=== PATIENT | female | born 1960 | race Caucasian/White ===

== ENCOUNTER → 2016-11-30 | Outpatient (CLI) | payer MEDICAID, OTHER ==
--- NOTE | 2016-11-30 17:07 | RADIOLOGY REPORT (SQ) ---
EXAM DESCRIPTION: CHEST PA/LATERAL COMPLETED DATE/TIME: 11/30/2016 4:56 pm REASON FOR STUDY: CHEST PAIN, UNSPECIFIED COMPARISON: CT angio chest and chest films 07/20/2016 EXAM PARAMETERS: NUMBER OF VIEWS: two views TECHNIQUE: Digital Frontal and Lateral radiographic views of the chest acquired. RADIATION DOSE: NA LIMITATIONS: none FINDINGS: LUNGS AND PLEURA: No opacities, masses or pneumothorax. No pleural effusion. MEDIASTINUM AND HILAR STRUCTURES: No masses or contour abnormalities. HEART AND VASCULAR STRUCTURES: Heart normal size. No evidence for failure. BONES: No acute findings. HARDWARE: Dorsal column stimulator electrodes over the lower thoracic spine. Post cervical fusion wi th hardware. OTHER: No other significant finding. IMPRESSION: NO SIGNIFICANT RADIOGRAPHIC FINDING IN THE CHEST. TECHNICAL DOCUMENTATION: JOB ID: [id number] [employer]- All Rights Reserved
[2016-11-30 17:08] LABS: ABSOLUTE BASOPHILS # (AUTO) 0.1 10^3/uL (0.0-0.2); ABSOLUTE EOSINOPHILS # (AUTO) 0.3 10^3/uL (0.0-0.6); ABSOLUTE LYMPHOCYTES (AUTO) 2.9 10^3/uL (0.5-4.7); ABSOLUTE MONOCYTES (AUTO) 0.4 10^3/uL (0.1-1.4); ABSOLUTE NEUT (AUTO) 2.9 10^3/uL (1.7-8.2); BASOPHILS % (AUTO) 0.9 % (0-2); EOSINOPHILS % (AUTO) 3.9 % (0-6); HEMATOCRIT 42.5 % (36.0-47.0); HEMOGLOBIN 13.9 g/dL (12.0-15.5); HGB HCT DIFFERENCE -0.8; LYMPHOCYTES % (AUTO) 44.4 % (13-45); MEAN CORPUSCULAR HEMOGLOBIN 30.7 pg (27.0-33.4); MEAN CORPUSCULAR HGB CONC 32.8 g/dL (32.0-36.0); MEAN CORPUSCULAR VOLUME 94 fl (80-97); MONOCYTES % (AUTO) 6.8 % (3-13); RED BLOOD COUNT 4.54 10^6/uL (3.72-5.28); RED CELL DISTRIBUTION WIDTH 13.9 % (11.5-14.0); WHITE BLOOD COUNT 6.6 10^3/uL (4.0-10.5)
[2016-11-30 17:29] LABS: ALANINE AMINOTRANSFERASE 32 U/L (9-52); ALBUMIN 4.3 g/dL (3.5-5.0); ALKALINE PHOSPHATASE 134 U/L (38-126); ANION GAP 10 (5-19); ASPARTATE AMINO TRANSFERASE 29 U/L (14-36); BILIRUBIN,DIRECT 0.3 mg/dL (0.0-0.4); BILIRUBIN,TOTAL 0.5 mg/dL (0.2-1.3); BLOOD UREA NITROGEN 9 mg/dL (7-20); CALCIUM 9.9 mg/dL (8.4-10.2); CARBON DIOXIDE 29 mmol/L (22-30); CHLORIDE 102 mmol/L (98-107); CREATININE RESULT 0.65 mg/dL (0.52-1.25); GLUCOSE 88 mg/dL (75-110); POTASSIUM 4.3 mmol/L (3.6-5.0); SODIUM 140.5 mmol/L (137-145); TOTAL PROTEIN 7.4 g/dL (6.3-8.2)
--- NOTE | 2016-11-30 20:30 | EKG REPORT ---
SEVERITY:- BORDERLINE ECG - SINUS RHYTHM BORDERLINE INFERIOR Q WAVES : Confirmed by: Tom Ellsworth MD 30-Nov-2016 20:29:57
== END ==
LOC: OD 16:09
PROVIDERS: ATTEND Obstetrics & Gynecology
DX: R07.9 Chest pain, unspecified (principal); R53.81 Other malaise
CPT/HCPCS: 36415; 71020; 80053; 83735; 83880; 85025; 93005; 93010

== ENCOUNTER → 2017-02-08 | Outpatient (CLI) | payer SELFPAY ==
--- NOTE | 2017-02-08 11:23 | RADIOLOGY REPORT (SQ) ---
EXAM DESCRIPTION: CT THORACIC SPINE WITHOUT COMPLETED DATE/TIME: 02/08/2017 10:41 am REASON FOR STUDY: THORACIC STENOSIS COMPARISON: CT angio chest 07/20/2016 TECHNIQUE: Axial images acquired through the thoracic spine without intravenous contrast. Images re viewed with lung, soft tissue and bone windows. Reconstructed coronal and sagittal MPR images review ed. Images stored on PACS. All CT scanners at this facility use dose modulation, iterative reconstruction, and/or weight based d osing when appropriate to reduce radiation dose to as low as reasonably achievable (ALARA). [facility]: Dose Right [facility]: CareDose [facility]: Dose Right [facility]: Teradose 4D [facility]: Smart [email or web address] RADIATION DOSE: Up-to-date CT equipment and radiation dose reduction techniques were employed. CTDIv ol: 13.3 mGy. DLP: 457 mGy-cm. mGy. LIMITATIONS: None. FINDINGS: VISUALIZED LUNGS: No acute opacities. No pneumothorax. SOFT TISSUES: No soft tissue swelling. No masses. VERTEBRAL BODIES: No fractures. No dislocation. No acute findings. DISCS: Multilevel diffuse disc space loss of height throughout the thoracic spine. No bulky anterior or posterior osteophytes. ALIGNMENT: Normal. TRANSVERSE PROCESSES, POSTERIOR ELEMENTS: No fractures. No dislocation. No acute findings. HARDWARE: Dorsal column stimulator with electrodes from T8 through T12. Lower cervical fusion hardwa re with metallic disc spacers at C5-6 and C6-7 VISUALIZED RIBS: No fractures. OTHER: No other significant finding. IMPRESSION: No acute findings. No thoracic compression deformity. Diffuse disc space loss of height throughout the thoracic spine without significant central or forami nal encroachment. TECHNICAL DOCUMENTATION: JOB ID: [id number] Quality ID # [id number]: Final reports with documentation of one or more dose reduction techniques (e.g., Au tomated exposure control, adjustment of the mA and/or kV according to patient size, use of iterative reconstruction technique) 2010 [employer]- All Rights Reserved
--- NOTE | 2017-02-08 11:30 | RADIOLOGY REPORT (SQ) ---
EXAM DESCRIPTION: CT LUMBAR SPINE WITHOUT COMPLETED DATE/TIME: 02/08/2017 10:41 am REASON FOR STUDY: LUMBAR RADICULOPATHY COMPARISON: CT abdomen pelvis 05/17/2012 TECHNIQUE: Axial images acquired through the lumbar spine without intravenous contrast. Images revi ewed with lung, soft tissue and bone windows. Reconstructed coronal and sagittal MPR images reviewed . All images stored on PACS. All CT scanners at this facility use dose modulation, iterative reconstruction, and/or weight based d osing when appropriate to reduce radiation dose to as low as reasonably achievable (ALARA). [facility]: Dose Right [facility]: CareDose [facility]: Dose Right [facility]: Teradose 4D [facility]: Smart [employer] RADIATION DOSE: Up-to-date CT equipment and radiation dose reduction techniques were employed. CTDIv ol: 13.3 mGy. DLP: 421 mGy-cm. mGy. LIMITATIONS: None. FINDINGS: SEGMENTATION: Normal. No transitional anatomy. ALIGNMENT: Mild degenerative convex rightward lumbar curvature VERTEBRAL BODIES: No fractures. No dislocation. No acute findings. DISCS: At T11-12, there is ligamentum flavum ossification. No central or foraminal stenosis. At T12-L1, there is mild bilateral facet arthropathy. No central or foraminal stenosis. Neurostimul ator electrodes enter the spinal canal Candis right interlaminar approach. At L1-2, mild bilateral facet hypertrophy is present. No central or foraminal encroachment. At L2-3, disc space loss of height is present with mild diffuse posterior disc bulging. This finding along with mild bilateral facet and ligament hypertrophy causes borderline central canal narrowing. No right foraminal narrowing. Mild left foraminal narrowing without definite exiting left L2 nerve root impingement. At L3-4, disc space loss of height is present with broad diffuse posterior disc bulging and bony spur ring along with moderate facet and ligament hypertrophy causes borderline central canal narrowing. N o significant right foraminal narrowing. Moderate left foraminal stenosis without definite exiting l eft L3 nerve root impingement. At L4-5, broad diffuse posterior disc bulging and bony spurring right greater than left along with mi ld bilateral facet hypertrophy causes mild central canal narrowing. There is asymmetric flattening o f the thecal sac on the right at the level of the takeoff of the right L5 nerve root in the lateral r ecess on axial image 67. Moderate to high-grade right and mild left foraminal narrowing is present. At L5-S1, minimal posterior disc bulging is present, mild bilateral facet hypertrophy with right liga mentum flavum ossification. No central stenosis. Mild to moderate right foraminal narrowing, no sig nificant left foraminal narrowing. PEDICLES, TRANSVERSE PROCESSES: No fractures. No dislocation. No acute findings. FACETS, POSTERIOR ELEMENTS: No fractures. No dislocation. HARDWARE: None in the spine. VISUALIZED RIBS: No fractures. SOFT TISSUES: No significant or acute finding in adjacent soft tissues. OTHER: No other significant finding. IMPRESSION: Degenerative disc changes most pronounced at L4-5 TECHNICAL DOCUMENTATION: JOB ID: [id number] Quality ID # [id number]: Final reports with documentation of one or more dose reduction techniques (e.g., Au tomated exposure control, adjustment of the mA and/or kV according to patient size, use of iterative reconstruction technique) 2010 [employer] All Rights Reserved
--- NOTE | 2017-02-08 11:35 | RADIOLOGY REPORT (SQ) ---
EXAM DESCRIPTION: CERV SP 3 VIEW OR LESS COMPLETED DATE/TIME: 02/08/2017 11:12 am REASON FOR STUDY: CERVICAL RADICULOPATHY (FLEX/EXT ONLY) COMPARISON: None. NUMBER OF VIEWS: Three views. TECHNIQUE: AP and lateral radiographic images acquired of the cervical spine. Lateral flexion and e xtension views were obtained. LIMITATIONS: None. FINDINGS: MINERALIZATION: Normal. ALIGNMENT: Anatomic. VERTEBRAE: Vertebral bodies of normal height. DISCS: No significant disc space narrowing. No large osteophytes. HARDWARE: There is an anterior plate that extends from C4 to C7 with screws into the vertebral bodies and with disc space implants. SOFT TISSUES: No masses or calcifications. Lung apices clear. OTHER: There is normal movement between flexion and extension. There is no instability. IMPRESSION: Surgical changes with no evidence of instability. TECHNICAL DOCUMENTATION: JOB ID: [id number] [employer]- All Rights Reserved
== END ==
LOC: RAD 10:24
PROVIDERS: ATTEND Specialist
DX: M54.16 Radiculopathy, lumbar region (principal); M54.12 Radiculopathy, cervical region; M48.04 Spinal stenosis, thoracic region
CPT/HCPCS: 72040; 72128; 72131

== ENCOUNTER 2018-01-23 05:04 | Emergency (ER) | payer SELFPAY ==
[2018-01-23] MEDS ORDERED: HYDROMORPHONE HCL INJ/PF 2 MG/ML AMPULE IM ONE ×2 (07:48→09:53)
[2018-01-23] MEDS ORDERED: LIDOCAINE 5% (700 MG) TRANSDERMAL ADH..PATCH TP ONE (07:49)
--- NOTE | 2018-01-23 07:58 | ER Document Report ---
HPI - HPI Patient complains to provider of: Right-sided neck pain Onset: Last week Onset/Duration: Persistent Quality of pain: Sharp Pain Level: 4 Context: Patient states she has a history of previous cervical fusion. Patient states that she was sweeping and cleaning the garage last week and afterwards developed neck pain. Patient denies any traumatic injury. Patient denies any fever or recent illness. Patient states pain radiates to the right upper extremity and that she has a decreased sensation to the right shoulder area. Associated Symptoms: Other - Right-sided neck pain. denies: Fever, Headache, Nausea, Vomiting Exacerbated by: Denies, Movement Relieved by: Denies Similar symptoms previously: No Recently seen / treated by doctor: No - ROS ROS below otherwise negative: Yes Systems Reviewed and Negative: Yes All other systems reviewed and negative - CONSTITUTIONAL Constitutional: DENIES: Fever - NEURO Neurology: DENIES: Weakness - CARDIOVASCULAR Cardiovascular: DENIES: Chest pain - GASTROINTESTINAL Gastrointestinal: DENIES: Nausea - REPRODUCTIVE Reproductive: DENIES: : - MUSCULOSKELETAL Musculoskeletal: REPORTS: Neck Pain - DERM Skin Color: Normal Skin Problems: None Past Medical History - General Information source: Patient - Social History Smoking Status: Current Every Day Smoker Smoking Education Provided: Yes Frequency of alcohol use: None Drug Abuse: None Occupation: None Lives with: Family Family History: Reviewed & Not Pertinent. denies: CAD, COPD Patient has suicidal ideation: No Patient has homicidal ideation: No - Past Medical History Cardiac Medical History: Denies: Hx Coronary Artery Disease, Hx Heart Attack, Hx Hypertension Pulmonary Medical History: Denies: Hx Asthma, Hx Bronchitis, Hx COPD, Hx Pneumonia Neurological Medical History: Denies: Hx Cerebrovascular Accident, Hx Seizures Renal/ Medical History: Denies: Hx Peritoneal Dialysis Musculoskeletal Medical History: Denies Hx Arthritis, Reports Other - Chronic back pain Psychiatric Medical History: Reports: Hx Anxiety, Hx Depression Past Surgical History: Reports: Hx Section, Hx Hysterectomy, Hx Orthopedic Surgery - Cervical fusion, spine stimulator. Denies: Hx Pacemaker - Immunizations Hx Diphtheria, Pertussis, Tetanus Vaccination: Yes Vertical Provider Document - CONSTITUTIONAL Agree With Documented VS: Yes Exam Limitations: No Limitations General Appearance: WD/WN, No Apparent Distress - INFECTION CONTROL TRAVEL OUTSIDE OF THE [place] IN LAST 30 DAYS: No - HEENT HEENT: Atraumatic, Normocephalic - NECK Neck: Supple, Other - Scar to left anterior neck Notes: Right sternocleidomastoid muscle tenderness with spasm - RESPIRATORY Respiratory: Breath Sounds Normal, No Respiratory Distress - CARDIOVASCULAR Cardiovascular: Regular Rate, Regular Rhythm Pulses: Normal: Radial - BACK Back: Abnormal Inspection - Right trapezius muscle tenderness and spasm - MUSCULOSKELETAL/EXTREMETIES Musculoskeletal/Extremeties: MAEW, FROM - NEURO Level of Consciousness: Awake, Alert, Appropriate Motor/Sensory: No Motor Deficit. negative: No Sensory Deficit - Decreased sensation to touch to right shoulder and upper arm, Weak Motor Strength RUE, Weak Motor Strength LUE - DERM Integumentary: Warm, Dry, No Rash Course - Re-evaluation Re-evalutation: 01/23/18 09:[address] Tang regarding patient presentation, reviewed patient's x-ray report and discussed her pain symptoms as well as numbness symptoms. Recommends outpatient follow-up with primary doctor. No additional imaging advised at this time. Patient unable to have a MRI due to DVT in the left eye. - Vital Signs Vital signs: Temp Pulse Resp BP Pulse Ox 98.1 F 95 16 150/95 H 98 01/23/18 05:05 01/23/18 05:05 01/23/18 05:05 01/23/18 05:05 01/23/18 05:05 - Diagnostic Test Radiology reviewed: Reports reviewed Discharge - Discharge Clinical Impression: Neck pain, Cervical radicular pain Condition: Stable Disposition: HOME, SELF-CARE Instructions: Radiculopathy ([facility]) Additional Instructions: Return immediately for any new or worsening symptoms Followup with your primary care provider, call tomorrow to make a followup appointment Follow-up with an orthopedic surgeon for further evaluation Take your medications that you have at home as prescribed Prescriptions: Methylprednisolone [Medrol Dosepack (4 mg/Tab) 21 Tab/Dosepak] 4 mg PO ASDIR PRN #[email or web address] PRN Reason: Forms: Smoking Cessation Education Referrals: TRINA LARA MD [Primary Care Provider] - Follow up as needed [facility] [Provider Group] - Follow up as needed
--- NOTE | 2018-01-23 08:35 | RADIOLOGY REPORT (SQ) ---
EXAM DESCRIPTION: CERV SP 4 OR 5 VIEWS COMPLETED DATE/TIME: 01/23/2018 8:12 am REASON FOR STUDY: neck pain, RUE pain COMPARISON: 02/08/2017 NUMBER OF VIEWS: Five views. TECHNIQUE: AP, lateral, obliques and odontoid radiographic images acquired of the cervical spine. LIMITATIONS: None. FINDINGS: MINERALIZATION: Normal. ALIGNMENT: There is straightening of the normal cervical lordosis. There is very slight anterolisthe sis of C3 on C4. VERTEBRAE: Vertebral bodies of normal height. DISCS: There is multilevel disc space narrowing. FORAMINA: No osteophytes or foraminal narrowing. LATERAL AND POSTERIOR ELEMENTS: Facets, lateral masses and spinous processes without significant find ings. HARDWARE: There has been anterior fusion from C4 through C7. SOFT TISSUES: No masses or calcifications. Lung apices clear. OTHER: No other significant finding. IMPRESSION: Postsurgical and degenerative changes. No acute findings. TECHNICAL DOCUMENTATION: JOB ID: [id number] [email or web address]- All Rights Reserved Reading location - IP/workstation name: [email or web address]
[2018-01-23 10:33] VITALS: BP 127/95
== END 2018-01-23 10:34 | disposition home or self-care (01) ==
LOC: ER 05:04
DX: M54.12 Radiculopathy, cervical region (principal); M54.2 Cervicalgia; M62.838 Other muscle spasm; R20.8 Other disturbances of skin sensation; F17.200 Nicotine dependence, unspecified, uncomplicated; Z98.1 Arthrodesis status
CPT/HCPCS: 99283; 96372; 72050; J1170